=== PATIENT | female | born 1990 | race Caucasian/White ===

== ENCOUNTER 2017-05-10 00:56 | Outpatient (CLI) | payer OTHER ==
[~2017-05-10] VITALS: Ht 160 cm; Wt 94.5 kg
[2017-05-10] MEDS ORDERED: LABETALOL HCL 200 MG TAB PO STA (02:12)
[2017-05-10 02:17] VITALS: Ht 160 cm; Wt 94.5 kg
[2017-05-10] MEDS ORDERED: PRENTAB26 PO (02:22)
[2017-05-10] MEDS ORDERED: LABE1TAB28 PO (02:22)
[2017-05-10 02:42] LABS: URINE APPEARANCE CLOUDY (CLEAR); URINE BILIRUBIN NEG (NEG); URINE COLOR YELLOW; URINE NITRITE NEG (NEG); URINE PH 8.5 (4.5-7.5); URINE SPECIFIC GRAVITY 1.016 (1.000-1.030); UROBILINOGEN NEG (NEG); ZZUR CULT IF INDIC CLEAN CATCH NO
[2017-05-10 02:42] LABS: BASO % 0.2 %; BASO ABS # 0.02 K/uL (0-0.2); COMPLETE YES; EOS % 1.4 %; LYMPH % 20.8 %; LYMPH ABS # 2.59 K/uL (1.2-3.4); MEAN CELL VOLUME 85.6 fL (80-100); MEAN CORPUSCULAR HEMOGLOBIN 30.9 pg (25-34); MEAN CORPUSCULAR HGB CONC 36.1 g/dl (32-36); MEAN PLATELET VOLUME 11.1 fL (7.4-10.4); MONO % 5.3 %; NEUT % 71.3 %; PLATELET COUNT 182 K/uL (130-400); RED BLOOD COUNT 4.44 M/uL (4.2-5.4); WHITE BLOOD COUNT 12.47 K/uL (4.8-10.8)
[2017-05-10 02:47] LABS: MANUAL MICROSCOPIC REQUIRED? NO; REVIEW REQ? NO
[2017-05-10 03:02] LABS: BUN/CREATININE RATIO 9.3 (10-20); CALCIUM 9.3 mg/dl (8.5-10.1); CREATININE 0.66 mg/dl (0.60-1.20); POTASSIUM 3.7 mmol/L (3.5-5.1)
[2017-05-10 03:04] LABS: ALB/GLOB RATIO 0.7 (0.9-2)
--- NOTE | 2017-05-10 04:36 | Discharge Instructions ---
Discharge Instructions Date of Service May 10, 2017. Admission Reason for Admission: Check Ruptured Membranes Discharge Discharge Diagnosis / Problem: chronic hypertension Discharge Goals Goal(s): Continuing OB care Activity Recommendations Activity Limitations: as noted below SPECIAL CARE INSTRUCTIONS: Call Doctor if: * Regular contractions every 5 minutes or greater than contractions in one hour. * Bleeding * Water breaks or is leaking * Decreased movement * Fever >100.4 degrees F * Pain not relieved by routine measures or pain medication ordered. FOLLOW UP VISIT: Return to Labor and Delivery on for /call for appointment time . Follow-up Visit with: When: . Current Hospital Diet Patient's current hospital diet: Discharge Diet Recommended Diet: Regular Diet Pending Studies Studies pending at discharge: no Medical Emergencies . Who to Call and When: Medical Emergencies: If at any time you feel your situation is an emergency, please call 911 immediately. . Non-Emergent Contact Non-Emergency issues call your: Specialist . . "Provider Documentation" section prepared by Janak Guidry. . VTE Core Measure Inpt VTE Proph given/why not?: Treatment not indicated
--- NOTE | 2017-05-10 07:00 | DIAGNOSTIC IMAGING REPORT ---
LIMITED (US) CLINICAL HISTORY: Hypertension. Possible ruptured membranes. COMPARISON STUDY: No previous studies for comparison. FINDINGS: A single alive intrauterine in cephalic presentation was identified. The heart rate is 124. The placenta was right sided. The anatomic fluid index was 8.6 cm. IMPRESSION: 1. Single live intrauterine 2. Amniotic fluid index of 8.6 cm Electronically signed by: Anthony Gilbert M.D. 05/10/2017 6:59 AM Dictated Date/Time: 05/10/2017 6:58 AM
--- NOTE | 2017-05-10 08:12 | HISTORY & PHYSICAL EXAMINATION ---
DATE OF ADMISSION: 05/10/2017 HISTORY OF PRESENT ILLNESS: The patient is a 27-year-old G3, P3 due date 05/23/2017 making her 38 weeks and 1 day. The patient has received her care with Dr. Hudson in [place]. The patient presented to the ER on 05/10/2017 early in the morning with complaints of "I lost my mucus plug". She was sent to labor and delivery for evaluation. On labor and delivery, she had no shortness of breath, no chills, no fever. She had no rupture of membranes. Pelvic exam showed she was 1 cm, 75% effaced and -2. She had no contractions. heart rate was category 1. The patient has received her care n [place] and just moved to [place]. She saw mucous discharge and felt she needed to come to the hospital. I did not have the patient's entire medical records. She, however, had visited maternal medicine in [facility], I was unable to pull her records from the [facility] consult. The patient has been complicated by history of chronic hypertension. She was being placed on labetalol 200 mg b.i.d. The patient, however, had not taken her medication in 1 week. On arrival, she had elevated blood pressures in the 170s and one occasion one as high as 200s was recorded. She was given 20 mg of labetalol. Blood workup for preeclampsia labs were done and were unremarkable. An ultrasound was done which was unremarkable as well. The patient tells me she has been followed by Dr. Hudson for growth scans. She told me she missed her last appointment because of her recent move as stated above. PAST MEDICAL HISTORY: 1. History of gastroesophageal reflux disease. 2. History of degenerative disc disease. 3. Chronic hypertension. 4. Tobacco use. 5. Obesity class 2. 6. Depression. PAST SURGICAL HISTORY: History of section in 2012 with twin . SOCIAL HISTORY: The patient denies drug use; however does history of tobacco use. No alcohol use history. REVIEW OF SYSTEMS: Negative except as dictated in the HPI. PHYSICAL EXAMINATION: GENERAL: Well-developed, well-nourished white female in no acute distress. HEART: S1, S2, regular rhythm and rate. LUNGS: Clear to auscultation bilaterally. ABDOMEN: Gravid. heart rate category 1. PELVIC: 1 cm, 75% effaced, -2. There is no gross rupture of membranes. Ultrasound is as dictated above unremarkable. EXTREMITIES: No cyanosis, clubbing or edema. ASSESSMENT AND PLAN: A 27-year-old G3, P3 at 38 weeks gestation. The patient is a patient of Dr. Hudson in [place]. is complicated by history of chronic hypertension on meds. The patient is seen today through the ER. She is not in labor. She is not buzz. The patient thought her membranes were ruptured. That is negative and she has been told that. The patient is encouraged to follow up with [facility] as soon as possible. She is discharged home with instructions.
== END 2017-05-10 04:50 | disposition home or self-care (01) ==
LOC: C.LD 00:56 → C.OPB 00:56
PROVIDERS: ATTEND Obstetrics & Gynecology
DX: O16.3 Unspecified maternal hypertension, third trimester (principal); Z3A.38 38 weeks gestation of pregnancy; O99.613 Diseases of the digestive system complicating pregnancy, third trimester; K21.9 Gastro-esophageal reflux disease without esophagitis; O99.333 Smoking (tobacco) complicating pregnancy, third trimester; O99.213 Obesity complicating pregnancy, third trimester; O99.343 Other mental disorders complicating pregnancy, third trimester; F32.9 Major depressive disorder, single episode, unspecified